=== PATIENT | male | born 1985 | race African-American/Black ===

== ENCOUNTER 2020-12-12 09:01 | Inpatient (IN) | payer MEDICAID ==
[~2020-12-12] VITALS: Ht 172.7 cm; Wt 118.4 kg
[2020-12-12] MEDS ORDERED: AZIT250T12 PO (09:11)
[2020-12-12] MEDS ORDERED: AZITHROMYCIN 500 MG in DEXT 5% WATER 250 ML IV ONE (09:15)
[2020-12-12] MEDS ORDERED: SODIUM CHLORIDE 0.9% 1,000 ML IV ONE (09:15)
[2020-12-12] MEDS ORDERED: DEXAMETHASONE 10 MG/ML VIAL IV ONE (09:15)
[2020-12-12 10:02] LABS: BASOPHILS % 0.7 % (0.0-2.0); EOSINOPHILS % 0.1 % (0.0-5.0); HEMOGLOBIN. 15.2 g/dL (14.0-18.0); LYMPHOCYTES % 13.6 % (20.0-50.0); MEAN CORPUSCULAR HEMOGLOBIN 25.8 pg (28.0-32.0); MEAN CORPUSCULAR VOLUME 78.3 fL (80.0-94.0); MEAN PLATELET VOLUME 8.8 fl (7.4-10.4); MONOCYTES % 6.9 % (2.0-8.0); NEUTROPHILS % 78.7 % (40.0-76.0); PLATELET 436 x1000/uL (130-400); RED BLOOD CELL COUNT 5.87 mill/uL (4.7-6.1); RED CELL DISTRIBUTION WIDTH 13.8 % (11.6-14.6)
[2020-12-12 10:07] LABS: CHLORIDE 105 mEq/L (98-107)
[2020-12-12 10:14] LABS: CREATINE KINASE 111 IU/L (39-308)
[2020-12-12 10:17] LABS: D-DIMER 6.09 mg/L FEU (<0.50); PROTHROMBIN TIME 10.3 sec (9.6-11.0)
[2020-12-12] MEDS ORDERED: ACETAMINOPHEN 325MG TABLET PO PRN (12:15)
[2020-12-12] MEDS ORDERED: CLONIDINE 0.1MG TABLET PO PRN (12:15)
[2020-12-12] MEDS ORDERED: ENOXAPARIN 40MG/0.4ML SYR SUBCUT SCH (12:15)
[2020-12-12] MEDS ORDERED: DIPHENHYDRAMINE 50MG/ML VIAL IV PRN (12:15)
[2020-12-12] MEDS ORDERED: AZITHROMYCIN 500 MG in DEXT 5% WATER 250 ML IV SCH (12:15)
[2020-12-12] MEDS ORDERED: ONDANSETRON HCL 4MG/2ML INJ IV PRN (12:15)
[2020-12-12] MEDS ORDERED: ENOXAPARIN 30MG/0.3ML SYR SUBCUT SCH (12:30)
[2020-12-12 15:05] LABS: CLARITY URINE CLEAR (CLEAR); COLOR URINE YELLOW (YELLOW); KETONES URINE NEGATIVE (NEGATIVE); LEUKOCYTE ESTERASE URINE NEGATIVE (NEGATIVE); NITRITE URINE NEGATIVE (NEGATIVE); OCCULT BLOOD URINE NEGATIVE (NEGATIVE); PH URINE 5.5 (4.5-8.0); PROTEIN URINE NEGATIVE (NEGATIVE)
[2020-12-12 16:00] VITALS: BP 115/72
[2020-12-12 20:00] VITALS: BP 114/61
[2020-12-12] MEDS: ENOXAPARIN 30MG/0.3ML SYR SUBCUT SCH (20:42)
[2020-12-13] VITALS: BP 134/91
[2020-12-13 04:00] VITALS: BP 136/82
[2020-12-13 07:51] LABS: BASOPHILS % 0.1 % (0.0-2.0); CHLORIDE 106 mEq/L (98-107); EOSINOPHILS % 0.1 % (0.0-5.0); HEMATOCRIT. 41.7 % (42.0-52.0); LYMPHOCYTES % 14.3 % (20.0-50.0); MEAN CORPUSCULAR VOLUME 77.1 fL (80.0-94.0); MEAN PLATELET VOLUME 8.9 fl (7.4-10.4); MONOCYTES % 7.4 % (2.0-8.0); NEUTROPHILS % 78.1 % (40.0-76.0); PLATELET 436 x1000/uL (130-400); RED CELL DISTRIBUTION WIDTH 13.7 % (11.6-14.6)
[2020-12-13 08:00] VITALS: BP 115/75
[2020-12-13 08:04] LABS: LDL CHOLESTEROL 92 mg/dL (5-100)
[2020-12-13] MEDS: AZITHROMYCIN 500 MG in DEXT 5% WATER 250 ML IV SCH (08:04)
[2020-12-13] MEDS: ENOXAPARIN 30MG/0.3ML SYR SUBCUT SCH ×2 (08:05→20:45)
[2020-12-13] MEDS: ASCORBIC ACID 500 MG TABLET PO SCH (08:05)
[2020-12-13] MEDS: ZINC SULFATE 220 MG ( 50 ) CAPSULE PO SCH (08:05)
[2020-12-13 08:07] LABS: HDL CHOLESTEROL 34 mg/dL (40-59)
[2020-12-13] MEDS ORDERED: AZITHROMYCIN 500 MG in DEXT 5% WATER 250 ML IV SCH (09:00)
[2020-12-13] MEDS ORDERED: DEXAMETHASONE 10 MG/ML VIAL IV SCH (09:00)
[2020-12-13 12:00] VITALS: BP 125/90
[2020-12-13] MEDS ORDERED: ASCO500T20 PO (14:27)
[2020-12-13] MEDS ORDERED: ZINC220C2 PO (14:27)
[2020-12-13] MEDS ORDERED: DEX6 PO (14:27)
[2020-12-13] MEDS ORDERED: CHOL400D7 MT (14:27)
[2020-12-13] MEDS ORDERED: AZIT500T8 MT (14:27)
[2020-12-13] MEDS ORDERED: SODIUM CHLORIDE 0.9% 1,000 ML IV ONE (14:30)
[2020-12-13 20:00] VITALS: BP 118/86
[2020-12-13 21:12] VITALS: BP 122/86
[2020-12-14] VITALS: BP 116/78
[2020-12-14 04:00] VITALS: BP 124/80
[2020-12-14 08:00] VITALS: BP 110/74
[2020-12-14] MEDS: AZITHROMYCIN 500 MG in DEXT 5% WATER 250 ML IV SCH (08:21)
[2020-12-14] MEDS: ASCORBIC ACID 500 MG TABLET PO SCH (08:21)
[2020-12-14] MEDS: ZINC SULFATE 220 MG ( 50 ) CAPSULE PO SCH (08:21)
[2020-12-14] MEDS: ENOXAPARIN 30MG/0.3ML SYR SUBCUT SCH (08:22)
[2020-12-14] MEDS ORDERED: DEXAMETHASONE 6MG TABLET PO SCH (09:00)
[2020-12-14 09:30] VITALS: BP 125/76
[2020-12-14] MEDS ORDERED: IOHEXOL-350 100 ML BOTTLE ONE (11:10)
[2020-12-14 12:00] VITALS: BP 124/75
== END 2020-12-14 13:15 | disposition home or self-care (01) | DRG 720 ==
LOC: ER 09:01 → 7WST 11:08 → EDBEDREQTM 11:12 → EDBEDREQ 11:12 → ENRESERV 14:01
PROVIDERS: ADMIT Internal Medicine; ATTEND Internal Medicine
DX: A41.89 Other specified sepsis (principal); U07.1 COVID-19; J96.01 Acute respiratory failure with hypoxia; J12.82 Pneumonia due to coronavirus disease 2019; J98.8 Other specified respiratory disorders; R74.01 Elevation of levels of liver transaminase levels; G47.33 Obstructive sleep apnea (adult) (pediatric); Z88.0 Allergy status to penicillin; Z82.49 Family history of ischemic heart disease and other diseases of the circulatory system
CPT/HCPCS: 36415; 71045; 71275; 80053; 80061; 81003; 82550; 82728; 83605; 83615; 83880; 84145; 84443; 84484; 85025; 85379; 85384; 86140; 93005; 99291; J0456; J1100; J1650; J7030; J7040; J7060; Q9967; U0003; U0005